=== PATIENT | female | born 1985 | race Caucasian/White ===

== ENCOUNTER 2018-03-16 12:02 | Outpatient (CLI) | payer OTHER, SELFPAY | END 2018-03-16 12:22 | PROVIDERS: PCP Nurse Practitioner; Visit Provider Nurse Practitioner | DX: R63.4 Abnormal weight loss (principal) | CPT/HCPCS: 36415; 84443 ==

== ENCOUNTER 2018-08-01 09:03 | Outpatient (CLI) | payer OTHER, SELFPAY ==
[2018-08-01 09:40] LABS: HCT 37.7 % (36.0-46.0); HGB 13.3 g/dL (12.0-15.5); Mean Corp. HGB Concentration 35.3 g/dL (32.0-36.0); Mean Corpuscular Hemoglobin 32.7 pg (27.0-33.0); Mean Corpuscular Volume 92.6 fL (80-95); Mean Platelet Volume 9.3 fL (8.0-11.0); Platelet Count 195 x1000/uL (130-400); RBC 4.07 m/cumm (4.00-5.20); RBC Distribution Width 11.8 % (11.7-14.6); White Blood Cell Count 4.83 k/cumm (4.4-10.8)
[2018-08-01 10:35] LABS: ALT 19 U/L (12-78); AST 14 U/L (15-37); Alkaline Phosphatase 46 U/L (46-116); Anion Gap 6.3 mmol/L (3-11); BUN 7 mg/dL (7-18); Bilirubin, Total 0.6 mg/dL (0.2-1.0); CO2 28.7 mmol/L (21.0-32.0); CREATININE 0.71 mg/dL (0.55-1.02); Calcium 8.8 mg/dL (8.5-10.1); Chloride 102 mmol/L (98-107); Glucose 89 mg/dL (70-100); Potassium 3.9 mmol/L (3.5-5.1); Sodium 137 mmol/L (136-145); TSH (W/Ref FT4) 0.65 uIU/mL (0.358-3.74); Total Protein 6.7 g/dL (6.4-8.2)
== END 2018-08-01 09:23 ==
PROVIDERS: PCP Nurse Practitioner; Visit Provider Nurse Practitioner
DX: G43.909 Migraine, unspecified, not intractable, without status migrainosus (principal); R00.0 Tachycardia, unspecified
CPT/HCPCS: 36415; 80053; 85027; 84443

== ENCOUNTER 2018-08-02 01:39 | Outpatient (CLI) | payer OTHER, SELFPAY ==
--- NOTE | 2018-08-07 07:33 | HOLTER_ITS ---
HOLTER MONITOR DATE OF DICTATION August 06, 2018 48-Hour Study Baseline rhythm sinus. Rare single PAC. 2 bursts SVT, longest 6 beat duration, fastest 147 beats per minute. Rare single PVC. No VT. No bradycardia. SYMPTOMS Shortness of breath noted once during sinus rhythm 94 beats per minute. Flutter/cough noted once during sinus rhythm 91 beats per minute, noted twice during sinus rhythm wit h single PVC 80, 97 beats per minute. Average heart rate 90 beats per minute, range 65-134 beats per minute. Jamie Huang M.D. FILOMENA/ryder T - 08/07/18
== END 2018-08-02 01:59 ==
PROVIDERS: PCP Nurse Practitioner; Visit Provider Nurse Practitioner
DX: R00.0 Tachycardia, unspecified (principal); I47.1 Supraventricular tachycardia; I49.1 Atrial premature depolarization; I49.3 Ventricular premature depolarization
CPT/HCPCS: 93225

== ENCOUNTER 2018-08-06 10:38 | Outpatient (CLI) | payer OTHER, SELFPAY | END 2018-08-06 10:58 | PROVIDERS: PCP Nurse Practitioner; Visit Provider Nurse Practitioner | DX: R00.0 Tachycardia, unspecified (principal); I47.1 Supraventricular tachycardia; I49.1 Atrial premature depolarization; I49.3 Ventricular premature depolarization | CPT/HCPCS: 93226 ==

== ENCOUNTER 2019-07-03 06:57 | Outpatient (CLI) | payer OTHER, SELFPAY ==
--- NOTE | 2019-07-03 07:00 | DI.US_ITS ---
EXAM: US ABDOMEN CLINICAL HISTORY: RUQ PAIN,R10.11 TECHNIQUE: Ultrasound performed using standard protocol. COMPARISON: No exams were available for comparison FINDINGS: The visualized liver parenchyma is normal in appearance. There is no evidence of cholelithiasis but there are multiple small gallbladder polyps largest measuring about 4 millimeters. Gallbladder wall is not thickened. No pericholecystic fluid collection. Pancreas appears intact as visualized. No biliary dilatation. Spleen is unremarkable. The kidneys are normal in size and shape with no evidence of a renal mass, hydronephrosis, or nephrol ithiasis. Abdominal aorta and IVC are of normal diameter. IMPRESSION: No evidence of acute intra-abdominal process. Incidental gallbladder wall polyps. DATA REPOSITORY:
--- NOTE | 2019-07-03 07:52 | DI.US_ITS ---
EXAM: US PELVIS CLINICAL HISTORY: RLQ PAIN, R10.31 TECHNIQUE: Ultrasound performed using standard protocol. COMPARISON: US ABDOMEN from 07/03/2019 FINDINGS: Pelvic ultrasound was performed transabdominally only. The examination is very technically limited. No gross uterine abnormality seen. Endometrial stripe grossly estimated at 6 millimeters but endome trium is not well visualized. No gross free fluid in the pelvis. Ovaries not visualized. IMPRESSION: Very limited study obtained transabdominally. Ovaries not visualized. No free fluid in the pelvis. DATA REPOSITORY:
== END 2019-07-03 07:17 ==
PROVIDERS: PCP Nurse Practitioner; Visit Provider Nurse Practitioner
DX: R10.11 Right upper quadrant pain (principal); K82.4 Cholesterolosis of gallbladder; R10.31 Right lower quadrant pain
CPT/HCPCS: 76700; 76856

== ENCOUNTER 2019-07-11 11:01 | Outpatient (REF) | payer OTHER, SELFPAY ==
[2019-07-15 11:59] LABS: Helicobacter pylori Ag, Feces Negative (Negative)
== END 2019-07-11 11:21 ==
LOC: LBN 11:01
PROVIDERS: PCP Nurse Practitioner; Visit Provider Nurse Practitioner
DX: R10.11 Right upper quadrant pain (principal); R10.31 Right lower quadrant pain
CPT/HCPCS: 87338

== ENCOUNTER 2019-07-18 02:15 | Outpatient (CLI) | payer OTHER, SELFPAY ==
[2019-07-18] MEDS: Normal Saline - Diluent 50 ML VIAL IV (08:57)
[2019-07-18] MEDS: Omnipaque 350 MG/ML 100 ML BTL IJ (08:58)
--- NOTE | 2019-07-18 08:59 | DI.CT_ITS ---
EXAM: CT CHEST/ABD W CLINICAL HISTORY: rib pain rt side, ruq pain, r10.11,r07.81 COMPARISON: No exams were available for comparison FINDINGS: CT examination of the chest and abdomen was performed utilizing biphasic imaging with intravenous inf usion of 100 cc of Omnipaque 350. The lungs are clear. No pleural effusion or pleural-based mass. No pneumothorax or hemothorax. There is no evidence of pulmonary embolic disease. Thoracic aorta an d major branches appear intact. No mediastinal or hilar adenopathy. No focal abnormality involving the rib or soft tissues of the chest wall. The liver, spleen, and pancreas appear normal. Gallbladder and bile ducts are CT normal. Adrenals a nd kidneys appear normal. No hernia of visualized portions of the abdominal wall. No abdominal wall hematoma or mass. Abdominal aorta and major branches appear normal. IMPRESSION: Negative CT examination of the chest and abdomen.
== END 2019-07-18 02:35 ==
PROVIDERS: PCP Nurse Practitioner; Visit Provider Nurse Practitioner
DX: R07.81 Pleurodynia (principal); R10.11 Right upper quadrant pain
CPT/HCPCS: 71260; 74160; J3490

== ENCOUNTER 2020-01-17 03:04 | Outpatient (CLI) | payer OTHER, SELFPAY ==
[2020-01-17 11:39] LABS: Abs Immature Grans 0.01 10^3/uL (0.0-0.06); Absolute Basophil Count 0.04 10^3/uL (0.0-0.2); Absolute Eosinophil Count 0.11 10^3/uL (0.0-0.7); Absolute Monocyte Count 0.42 10^3/uL (0.1-0.8); Absolute Neutrophil Count 3.44 10^3/uL (1.2-6.7); Basophils % 0.7; Eosinophils % 1.9; HGB 13.6 g/dL (11.2-15.7); Immature Grans % 0.2; Lymphocytes % 29.7; MCH 32.4 pg (27.0-33.0); MCHC 35.8 % (32.0-36.0); MCV 90.5 fL (80-95); MPV 9.2 fL (8.0-11.0); Monocytes % 7.3; Neutrophils % 60.2; Nucleated RBC 0 %; Platelet Count 200 10^3/uL (130-400); RDW 11.5 % (11.7-14.6); RDW-SD 37.6 fL; WBC 5.72 10^3/uL (4.4-10.8)
[2020-01-17 12:48] LABS: ALT 58 U/L (14-59); AST 25 U/L (15-37); Albumin 4.3 g/dL (3.4-5.0); Alkaline Phosphatase 56 U/L (46-116); Anion Gap 5.5 mmol/L (3-11); BUN 13 mg/dL (7-18); Bilirubin, Total 0.5 mg/dL (0.2-1.0); CO2 30.5 mmol/L (21.0-32.0); CREATININE 0.68 mg/dL (0.55-1.02); Calcium 9.5 mg/dL (8.5-10.1); Chloride 101 mmol/L (98-107); FREE T4 0.99 ng/dL (0.76-1.46); Glucose 77 mg/dL (74-106); Potassium 3.8 mmol/L (3.5-5.1); Sodium 137 mmol/L (136-145); Total Protein 7.5 g/dL (6.4-8.2)
[2020-01-17 18:13] LABS: FSH 5.3 mIU/mL (See Note); LH 5.6 mIU/mL (See Note); Prolactin 9.5 ng/mL (See Table)
[2020-01-21 18:54] LABS: 17-Hydroxyprogesterone 48 ng/dL
[2020-01-24 18:15] LABS: TSH, Sensitive 0.8 mIU/L (0.3-4.2)
== END 2020-01-17 03:24 ==
PROVIDERS: PCP Nurse Practitioner; Visit Provider Obstetrics & Gynecology
DX: N93.8 Other specified abnormal uterine and vaginal bleeding (principal)
CPT/HCPCS: 36415; 80053; 83001; 83002; 83498; 84146; 84439; 84443; 85025

== ENCOUNTER 2020-02-10 00:47 | Outpatient (CLI) | payer OTHER, SELFPAY ==
--- NOTE | 2020-02-10 06:45 | DI.US_ITS ---
EXAM: US PELVIS TRANSVAGINAL CLINICAL HISTORY: evaluate endometrium,DYSFUNCTIONAL UTERINE BLEEDING,N92.6,TRYING TO GET TECHNIQUE: Ultrasound performed using standard protocol. COMPARISON: US US PELVIS from 07/03/2019 FINDINGS: Pelvic ultrasound was performed transabdominally and transvaginally. Uterus is normal in appearance with an unremarkable myometrium, and a 7 millimeter thick homogeneous endometrial stripe. The ovaries have a normal follicular appearance. Right ovary measures 30 x 17 x 16 millimeters and l eft ovary measures 30 x 16 x 18 millimeters. Limited scanning of the kidneys is unremarkable. There is no free fluid identified in the cul-de-sac . IMPRESSION: Negative pelvic ultrasound, unremarkable appearance of endometrial stripe. DATA REPOSITORY:
== END 2020-02-10 01:07 ==
PROVIDERS: PCP Nurse Practitioner; Visit Provider Obstetrics & Gynecology
DX: N92.6 Irregular menstruation, unspecified (principal)
CPT/HCPCS: 76830; 76856

== ENCOUNTER 2020-10-01 09:36 | Outpatient (CLI) | payer OTHER, SELFPAY ==
[2020-10-01 16:27] LABS: HCG Quant, Pregnancy 994 mIU/mL (1-3)
[2020-10-02 17:36] LABS: Progesterone 20.3 ng/mL (See Table)
== END 2020-10-01 09:37 | disposition home or self-care (01) ==
LOC: LBO 09:43
PROVIDERS: PCP Nurse Practitioner; Visit Provider Obstetrics & Gynecology
DX: E28.2 Polycystic ovarian syndrome (principal); Z32.01 Encounter for pregnancy test, result positive
CPT/HCPCS: 36415; 84144; 84702

== ENCOUNTER 2020-11-11 03:35 | Outpatient (CLI) | payer OTHER, SELFPAY ==
[2020-11-11 14:57] LABS: Abs Immature Grans 0.01 10^3/uL (0.0-0.06); Absolute Basophil Count 0.05 10^3/uL (0.0-0.2); Absolute Eosinophil Count 0.08 10^3/uL (0.0-0.7); Absolute Lymphocyte Count 2.12 10^3/uL (1.2-3.4); Absolute Monocyte Count 0.55 10^3/uL (0.1-0.8); Absolute Neutrophil Count 6.19 10^3/uL (1.2-6.7); Basophils % 0.6; Eosinophils % 0.9; HCT 38.7 % (36.0-46.0); HGB 13.7 g/dL (11.2-15.7); Immature Grans % 0.1; Lymphocytes % 23.6; MCH 31.7 pg (27.0-33.0); MCHC 35.4 % (32.0-36.0); MCV 89.6 fL (80-95); MPV 9.1 fL (8.0-11.0); Monocytes % 6.1; Neutrophils % 68.7; Nucleated RBC 0 %; Platelet Count 212 10^3/uL (130-400); RBC 4.32 10^6/uL (3.93-5.22); RDW 11.4 % (11.7-14.6); RDW-SD 37.2 fL
[2020-11-11 16:04] LABS: TSH (W/Ref FT4) 0.88 uIU/mL (0.36-3.74)
[2020-11-12 10:51] LABS: Varicella IgG Antibody Positive (See Note)
[2020-11-12 10:53] LABS: Rubella IgG Ab (UVM) Positive (See Note)
[2020-11-12 11:45] LABS: Hepatitis B Surface Ag Negative (Negative)
[2020-11-12 12:28] LABS: HIV-1/2 Ag & Ab Screen Negative (Negative)
[2020-11-12 12:31] LABS: Hepatitis C Ab w Rflx HCV PCR Negative (Negative)
[2020-11-12 20:17] LABS: Syphilis Total Ab w/Reflex Nonreactive (Nonreactive)
== END 2020-11-11 03:36 | disposition home or self-care (01) ==
LOC: LBO 03:35
PROVIDERS: Advanced Practice Midwife; PCP Nurse Practitioner; Visit Provider Obstetrics & Gynecology
DX: Z34.91 Encounter for supervision of normal pregnancy, unspecified, first trimester (principal); Z11.4 Encounter for screening for human immunodeficiency virus [HIV]; Z11.59 Encounter for screening for other viral diseases; Z3A.10 10 weeks gestation of pregnancy; Z01.84 Encounter for antibody response examination
CPT/HCPCS: 36415; 86787; 86803; 86850; 86900; 86901; 87340; 87389; 84443; 85025; 86762; 86780

== ENCOUNTER 2020-11-11 15:03 | Outpatient (REF) | payer OTHER, SELFPAY ==
--- NOTE | 2020-11-11 13:30 | PAPFT_PTH ---
PATIENT: Nargis Sethi LOC: Ld U#:[id number] AGE/SX: 35/F ROOM: RE11/11/[address]: Princess Rucker CNM : 1985 BED: DIS: 11/11/2020 SPEC #: [id number] RECD: 11/11/20 18:19 STATUS: PILAR RERylee #: [id number] JIMMY: 11/11/20 13:[address]: Princess Rucker DEPT: [facility] Cytology RECD BY: Maria R Tom ENTERED: 11/11/20 18:19 SP TYPE: PAPFT MARIAH DR: Christine Kruse APRN Tissues: 1 - CX/ENDOCX FOR PAP SMEARS Procedures: PAP THIN PREP/UVM Screening HPV DNA PROBE Comments: [id number]
[2020-11-11 17:14] LABS: *AMPHETAMINES SCREEN URINE Negative (Negative); *BARBITURATES SCREEN URINE Negative (Negative); *BENZODIAZEPINES SCREEN URINE Negative (Negative); Cannabinoids THC Negative (Negative); Cocaine Screen,Urine Negative (Negative); METHADONE URINE SCREEN Negative (Negative); OPIATES URINE SCREEN Negative (Negative)
[2020-11-11 17:15] LABS: Tricyclic Antidepressants Negative (Negative)
[2020-11-12 14:55] LABS: Chlamydia Result Negative (Negative); GC Result Negative (Negative)
[2020-11-17 14:38] LABS: Buprenorphine Negative ng/mL (Cutoff: 5.0); Norbuprenorphine Negative ng/mL (Cutoff: 2.5)
== END 2020-11-11 15:04 | disposition home or self-care (01) ==
LOC: LBN 15:03
PROVIDERS: PCP Nurse Practitioner; Visit Provider Advanced Practice Midwife
DX: Z34.91 Encounter for supervision of normal pregnancy, unspecified, first trimester (principal); Z11.3 Encounter for screening for infections with a predominantly sexual mode of transmission; Z12.4 Encounter for screening for malignant neoplasm of cervix; Z11.51 Encounter for screening for human papillomavirus (HPV)
CPT/HCPCS: 80307; 87491; 87591; 88142; 87086; 87624

== ENCOUNTER 2021-03-10 02:19 | Outpatient (CLI) | payer OTHER, SELFPAY ==
[2021-03-10 13:44] LABS: HCT 30.2 % (36.0-46.0); HGB 10.6 g/dL (11.2-15.7); MCH 32.7 pg (27.0-33.0); MCHC 35.1 % (32.0-36.0); MCV 93.2 fL (80-95); MPV 8.6 fL (8.0-11.0); Platelet Count 172 10^3/uL (130-400); RBC 3.24 10^6/uL (3.93-5.22); RDW 11.9 % (11.7-14.6)
[2021-03-10 13:53] LABS: Glucose,1 Hr (Glucola) 128 mg/dL (80-140)
== END 2021-03-10 02:20 | disposition home or self-care (01) ==
LOC: LBO 02:19
PROVIDERS: PCP Nurse Practitioner; Visit Provider Advanced Practice Midwife
DX: Z34.92 Encounter for supervision of normal pregnancy, unspecified, second trimester (principal)
CPT/HCPCS: 36415; 82950; 85027; 86850; 90384

== ENCOUNTER 2021-05-12 17:55 | Outpatient (REF) | payer OTHER, SELFPAY ==
[2021-05-12 19:47] LABS: *AMPHETAMINES SCREEN URINE Negative (Negative); *BARBITURATES SCREEN URINE Negative (Negative); *BENZODIAZEPINES SCREEN URINE Negative (Negative); Cannabinoids THC Negative (Negative); Cocaine Screen,Urine Negative (Negative); METHADONE URINE SCREEN Negative (Negative); OPIATES URINE SCREEN Negative (Negative)
[2021-05-12 19:49] LABS: Tricyclic Antidepressants Negative (Negative)
[2021-05-18 14:38] LABS: Buprenorphine Negative ng/mL (Cutoff: 5.0); Norbuprenorphine Negative ng/mL (Cutoff: 2.5)
== END 2021-05-12 17:56 | disposition home or self-care (01) ==
LOC: LBN 17:55
PROVIDERS: PCP Nurse Practitioner; Visit Provider Advanced Practice Midwife
DX: Z34.93 Encounter for supervision of normal pregnancy, unspecified, third trimester (principal)
CPT/HCPCS: 80307; 87081

== ENCOUNTER 2021-06-10 16:00 | Inpatient (IN) | payer OTHER, SELFPAY ==
[2021-06-10] VITALS (11 sets, daily range): BP systolic 101–121; BP diastolic 58–73; PULSE 79–100; RESP 16–20; TEMP 36.7–36.8; O2SAT 99
[2021-06-10] MEDS: Penicillin G POT. 5,000,000 UNITS in Normal Saline 100 ML 200 UNITS IVPB (15:25)
[2021-06-10 15:35] LABS: Source Nasal/Nares
--- NOTE | 2021-06-10 15:36 | W.PM.OBHPL1 ---
Date of service: 06/10/21 Time of Service: 15:36 Assessment and Plan Assessment and plan (1) Active labor at term: Status: Acute Assessment and plan: 1. admit, labs, COVID screen and IV placement 2. expect NVD (2) Group B Streptococcus carrier, +RV culture, currently : Status: Acute Assessment and plan: 1. PCN prophylaxis for GBS + initiated. OB-HPI Labor/Delivery History of Present Illness Reason for Visit: In labor Chief Complaint: Uterine Contractions. JOSE ALFREDO Calculator Estimated Delivery Date Method Current WG Current Estimate 06/07/21 Ultrasound #1 40w 3d Other Estimates 04/27/21 LMP (Uncertain) 46w 2d Comments: labor at term History of Present Expected Delivery Route/Plan - CNM goes by Lauryn TRUONG/ - Quentin Sethi (first child BG GBS POSITIVE Quentin will be support person in labor and possibly her mother. Specific Issues/Plan 1. Hx PCOS & infertility x1 yr, this is a spontaneous 2. AMA; will be 36 at delivery, advised to take low dose ASA @ 12 wks - not taking it. She states was not aware, declines to start. 3. Both pt & FOB are COVID vaccinated 4. Undecided about genetic testing, will discuss w/ and let us know- declined serum testing. 5. Vegetarian; advised to take Blood Builder tab daily with her PNV Alive brand 5. Started eating fish - not taking blood builder. Taking gummie vitamins - Ferrous sulfate or floridix recommended 6. Rh negative, Rhogam at 28: given 03/10/21 6a. Quentin having blood type checked- He is O pos. 7. Nosebleeds and environmental allergies. Daily antihistamine recommended-flonase which was ineffective. . 7a. Using a humidifier at work and that is helping. 8. chronic right upper and lower abdominal pain. Narrative: up to date Review of Systems Narrative: reports active contractions, intense for past 30 minutes following SROM at 1330 today clear fluid. all other systems negative. PFSH All Active Problems (Updated 06/10/21 @ 15:43 by Nargis Henry CNM) Active labor at term (Acute) Group B Streptococcus carrier, +RV culture, currently (Acute) Chronic abdominal pain (Acute) upper and lower right quadrant - neg US and CT scans 2019 Rh negative status during (Acute) 10 weeks gestation of (Acute) PCOS (polycystic ovarian syndrome) (Acute) Tinea (Acute) Gallbladder polyp (Acute) Vegetarian (Acute) Migraine (Chronic) Medical History Chronic abdominal pain upper and lower right quadrant - neg US and CT scans 2019 DUB (dysfunctional uterine bleeding) Encounter for fertility planning Gallbladder polyp Menstrual period late Migraine PCOS (polycystic ovarian syndrome) Positive test Rib pain on right side RLQ abdominal pain RUQ pain Trying to get Vegetarian Surgical History [place] teeth extracted Family History Mother Skin cancer Asthma Father Melanoma Brother No problems noted. Paternal Aunt Brain aneurysm Maternal Uncle , Suicide No problems noted. Paternal Grandmother Lymphoma Stage 4 chronic kidney disease Paternal Grandfather Brain aneurysm ? 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 Pets and animals: Yes (3) Pets and animals: cat(s) Sexually active: Yes Do you think of yourself as: straight/heterosexual Current gender identity: female What is your relationship status?: How often do you talk on the phone with friends or family?: three or more times per week Do you belong to any clubs or organized social groups?: yes Panel score (0-1 are the most socially isolated patients): 3 What type of physical activity do you participate in: aerobic, other and running Duration: 15-30 minutes/day Frequency: 5-6 times per week Genie/Jainism: None Special genie needs: No Seatbelt use: always Helmet use: Yes Helmet use: always Drive intox or ride w/intox fuel oil truck driver: No History History 1 Para 0 Hx # Term Pregnancies 0 Multiple births 0 Hx # Pregnancies 0 Ectopic pregnancies 0 AB induced 0 Hx Number of Living Children 0 AB spontaneous 0 Meds Allergies and Home Medications Allergies Allergy/AdvReac Type Severity Reaction Status Date / Time No Known Allergies Allergy Verified 06/10/21 15:41 Home Medications Medication Instructions Recorded Confirmed Type prenat.vits,theresa,[id number] 1 tab PO DAILY 05/11/20 05/26/21 History fluticasone propionate 50 2 spray INTRANASAL DAILY #16 g 02/19/21 05/26/21 Rx mcg/actuation nasal spray,suspension sodium chloride 0.65 % nasal drops 2 drp INTRANASAL Q2H PRN #50 ml 02/19/21 05/26/21 Rx ([place] Saline) Exam Physical Exam Vital Signs Reviewed: Yes Detailed Labor and Delivery Exam Dilation: 9 Effacement (%): 100 station: -1 Cervix position: anterior Consistency: soft Tejeda Score: Cervical Points Exam 0 1 2 3 Dilation Closed 1-2cm 3-4 cm 5-6cm Effacement 0-30% 40-50% 60-70% 80% Consistency Firm Medium Soft Station -3 -2 -1,0 +1,+2 Position Posterior Mid Anterior TEJEDA Score(Cervical Ripeness Score): 12 Rupture Method: Spontaneous Amniotic Fluid: Clear Comments: Lauryn presents with her Mother and her for complaint of ROM 1330 and active contractions which began within 1 hour of ROM. 9 cm on arrival. Will anticipate NVD. KH Fetus A Heart Rate Baseline: 140 Monitor Accelerations: 15 X 15 Monitor Decelerations: None Variability: Moderate (6-25 BPM) Presentation: Cephalic Categories: Category I Est. Weight: 7 lb Date of Membrane Rupture: 06/10/21 Time of Membrane Rupture: 13:30 HEENT Exam HEENT Exam: Normal Neck Exam Neck Exam: Not Done Chest/Brest/Axilla Exam Chest Exam: Not Done Breast Exam Breast Exam: Not Done Respiratory Exam Respiratory Exam: Normal Cardiovascular Exam Cardiovascular Exam: Normal Exam Exam: Normal (grossly leaking clear fluid) Extremities Exam Extremities Exam: Normal Back/Spine/Pelvis Exam Pelvis Adequate: Yes Neurological Exam Neurological Exam: Normal Psychiatric Exam Psychiatric Exam: Normal Results Results Group Beta Strep: Positive Blood Type: O- Rubella Status: Immune Varicella Immunity: Immune Risk Assessment Risk for Shoulder Dystocia Historical/Initial OB: NEGATIVE FOR: Pelvic Abnormality, Pre- BMI>30, Previous Shoulder Dystocia or Previous Macrosomia Delivery Plan @ 40 wks: expect NVD. KH Risk for Pre-Eclampsia Date Initiated/Initials: to start low dose ASA @ 12 wks jk Yes, if one or more: NEGATIVE FOR: Hx Pre-E/Gest HTN, Chronic HTN, Multiple Gestation, Pre-gestational DM, Renal Disease, Systemic Lupus or APA Syndrome Yes, if 2 or more: POSITIVE FOR: Nulliparity and Age>= 35 yrs (age 35 at delivery); NEGATIVE FOR: >10yr btwn pregnancies, BMI>30, ethinicty, Mother/Sister w/ Pre-E or Previous IUGR Risk for Post- Hemorrhage Initial: NEGATIVE FOR: Multiple Gestation, Previous PPH, Known Clotting Deficiency, Grand Multiparity or Anticoagulation Risks Reviewed Risks Reviewed Upon Admission: Yes
[2021-06-10] MEDS: Ondansetron 4 MG/2 ML VIAL IVP (15:40)
[2021-06-10] MEDS: Lactated Ringers 1,000 ML 125 ML IV (15:54)
[2021-06-10 16:07] LABS: HCT 33.9 % (36.0-46.0); HGB 11.7 g/dL (11.2-15.7); MCH 30.1 pg (27.0-33.0); MCHC 34.5 % (32.0-36.0); MCV 87.1 fL (80-95); MPV 9.4 fL (8.0-11.0); Platelet Count 182 10^3/uL (130-400); RBC 3.89 10^6/uL (3.93-5.22); RDW 13.3 % (11.7-14.6); RDW-SD 42.1 fL; WBC 9.94 10^3/uL (4.4-10.8)
[2021-06-10 16:17] LABS: COVID-19 PCR Negative (Negative)
--- NOTE | 2021-06-10 18:29 | W.OBDELIVERY ---
Date of service: 06/10/21 Time of Service: 18:30 OB Labor/ Delivery Information Baby A Delivery Delivery Method: Spontaneaous Presentation: Cephalic Cephalic Position: Vertex Vertex Position: Left Occipital Anterior Cord Description-Baby A: 3 Vessels Cord Description Comment: normal appearance. Amniotic Fluid: Clear Estimated Blood Loss: 400 Delivery Outcome: Liveborn Complications: none Infant Transferred: Remains with Mother Note: After 30 minute active pushing phase, baby girl delivers TAMMI with left arm delivering with head at 1755. Shoulders deliver easily with maternal pushing effort. Baby is brought to Mother's abdomen. 9 at one minute and 9 at five minutes. Positive family bonding noted. Placenta delivers via thakkar mechanism, intact at 1804. Fundus firms to U-1 with massage and IV fluid with pitocin infusing which began after of baby. Perienum inspected and noted to have 2nd degree laceration which was infiltrated with 10 cc of 1% lidocaine and then repaired with 3.0 vicryl in usual fashion. sponge, needle and instrument count are correct. Mother and baby are in satisfactory condition. Baby girl does not have a name yet. Weight is pending due to skin to skin. See completed delivery record for weight. Expect normal PP course. Providers Nurse Doctor Of Nursing Practice: Nargis Henry Nurse: Dina Castro Nurse: Torsten Rivera Labor/Delivery Information Number of Babies in Womb: 1 Steroids Given: None Reason Steroids Not Administered: N/A Group Beta Strep: Positive Antibiotics Administered: Yes Number of Doses of Antibiotics: 1 Rubella Status: Immune Blood Type: O- Varicella Immunity: Immune Maternal Complications: None Shoulder Dystocia: No Stages of Labor Onset of Labor Date: 06/10/21 Onset of Labor Time: 13:30 Complete Dilatation Date: 06/10/21 Complete Dilatation Time: 17:30 Labor - Stage 1 Duration: 0 minutes ROM Baby A: 06/10/21 ROM Baby A: 13:30 ROM Total Time- Baby A: [id number] Infant Delivery Date-Baby A: 06/10/21 Delivery Time-Baby A: 17:55 Labor Stage 2 Duration: 25 minutes Placenta Delivery Date-Baby A: 06/10/21 Placenta Delivery Time-Baby A: 18:04 Labor-Stage 3 Duration: 9 minutes Total Length of Labor-Baby A: 4 hours and 25 minutes Placenta Cultured: No Baby A Infant Gender: Female Gestational Status: Term (39-41.6 wks) Gestational Age in Weeks/Days: 40 Weeks and 3 Days Score-1 Minute Interval(Baby A) Heart Rate-1 minute: 100 BPM or Greater Respiratory Effort- 1 minute: Spontaneous/Strong Cry Muscle Tone-1 minute: Active Movement Reflex Response-1 minute: Prompt Response Color-1 minute: Bluish Hands or Feet Total Score-1 minute: 9 Score-5 Minute Interval(Baby A) Heart Rate- 5 minute: 100 BPM or Greater Respiratory Effort-5 minute: Spontaneous/Strong Cry Muscle Tone-5 minute: Active Movement Reflex Response-5 minute: Prompt Response Color-5 minute: Bluish Hands or Feet Total Score- 5 minute: 9
[2021-06-10] MEDS: Hamamelis Leaf/Glycerin 100 EACH BOX PR (19:43)
[2021-06-10] MEDS: Dibucaine 1% 28 GM TUBE TP (19:43)
[2021-06-11 00:05] VITALS: BP 129/91; PULSE 76; RESP 16; TEMP 36.7; O2SAT 98
[2021-06-11 04:03] VITALS: BP 103/67; PULSE 70
[2021-06-11 07:40] VITALS: BP 116/75; PULSE 76; RESP 16; TEMP 37; O2SAT 98
--- NOTE | 2021-06-11 08:31 | OBPPV_ITS ---
Date of service: 06/11/21 Time of Service: 08:31 Assessment and Plan Assessment and plan (1) Term delivered: Status: Acute Assessment and plan: A: PPD#1, s/p Nml recovery Satisfied with experience off to a good start Partial GBS prophylaxis prior to delivery P: Provide support RhoGam not indicated, baby=O neg Pt plans POP's Plan discharge after 48 hrs Schedule 2 & 6 wk f/up appt's Subjective Subjective Patient comments: No complaints, Pain well controlled, Tolerating diet and Flatus present Patient's Mood: happy baby status: Doing well, Nursing well, Rooming in and Strong Bonding Observed [place] feeding status: Exclusively breast feeding Exam Physical Exam Vital signs: Temp Pulse Resp BP Pulse Ox 98.1 F 70 16 103/67 98 06/11/21 00:05 06/11/21 04:03 06/11/21 00:05 06/11/21 04:03 06/11/21 00:05 Vital Signs Reviewed: Yes Constitutional Constitutional: no acute distress and average body habitus HEENT Exam HEENT Exam: Normal Neck Exam Neck Exam: Normal Breast Exam Bilateral: Breast Exam: Normal and Soft Nipple Exam: Normal and Uninjured Respiratory Exam Respiratory Exam: Normal Cardiovascular Exam Cardiovascular Exam: Normal Abdominal Exam Abdomen: Other (soft, nontender) Fundal Exam Fundus: Below Umbilicus and Firm Rectal Exam Rectal Exam: Not Done Exam Perineum: Repair Intact Extremities Exam Extremity Exam: Normal, Full ROM, Normal Capillary Refill and Warm to Touch Back/Spine/Pelvis Exam Back Exam: Normal Skin Exam Skin Exam: Normal Neurological Exam Neurological Exam: Normal Psychiatric Exam Psychiatric Exam: Normal Results Hemoglobin/Hematocrit: Hgb 11.7 g/dL (11.2-15.7) 06/10/21 15:26 Hct 33.9 % (36.0-46.0) L 06/10/21 15:26
[2021-06-11] MEDS: Docusate Sodium 100 MG CAP PO ×2 (12:48→19:26)
[2021-06-11 12:58] VITALS: BP 117/74; PULSE 76; RESP 20; TEMP 36.7; O2SAT 98
[2021-06-11 16:35] VITALS: BP 124/71; PULSE 86; RESP 16; TEMP 36.7; O2SAT 98
[2021-06-11 19:59] VITALS: BP 112/73; PULSE 81; RESP 16; TEMP 37.3
[2021-06-12] MEDS: Acetaminophen 325 MG TAB 650 MG PO (08:30)
[2021-06-12] MEDS: Docusate Sodium 100 MG CAP PO (08:31)
[2021-06-12] MEDS: Ibuprofen 600 MG TAB PO (08:31)
--- NOTE | 2021-06-12 08:55 | W.PM.OBPNV1 ---
Date of service: 06/12/21 Time of Service: 08:55 Assessment and Plan Assessment and plan (1) Term delivered: Status: Acute Assessment and plan: A: PPD#2, nml recovery well Pt expresses satisfaction with her maternity care Good supports in place at home P: Discharge when baby is released by Peds Pt plans POP's Keep 2 & 6 wk f/up appt's Written instructions reviewed and given to pt Subjective Subjective Patient comments: No complaints, Pain well controlled, Tolerating diet and Flatus present Patient's Mood: happy baby status: Doing well, Nursing well, Rooming in and Strong Bonding Observed [place] feeding status: Exclusively breast feeding Exam Physical Exam Vital signs: Temp Pulse Resp BP Pulse Ox 99.1 F 81 16 112/73 98 06/11/21 19:59 06/11/21 19:59 06/11/21 19:59 06/11/21 19:59 06/11/21 16:35 Vital Signs Reviewed: Yes Constitutional Constitutional: no acute distress and average body habitus HEENT Exam HEENT Exam: Normal Neck Exam Neck Exam: Normal Breast Exam Bilateral: Breast Exam: Normal and Soft Respiratory Exam Respiratory Exam: Normal Cardiovascular Exam Cardiovascular Exam: Normal Abdominal Exam Abdomen: Other (soft, nontender) Fundal Exam Fundus: Below Umbilicus and Firm Rectal Exam Rectal Exam: Not Done Exam Perineum: Repair Intact Extremities Exam Extremity Exam: Normal, Full ROM, Normal Capillary Refill and Warm to Touch Back/Spine/Pelvis Exam Back Exam: Normal Skin Exam Skin Exam: Normal Neurological Exam Neurological Exam: Normal Psychiatric Exam Psychiatric Exam: Normal Hemorrrhage Note IV Site Left Hand: IV Catheter Gauge: 20
--- NOTE | 2021-06-12 09:01 | DSE_ITS ---
Date of service: 06/12/21 Time of Service: 09:01 DS: Diagnosis Discharge Diagnosis (1) Term delivered: Status: Acute Discharge Plan Disposition Patient Disposition: HOME Condition: Good Discharge Details Reason For Visit: In labor Admit Date/Time: 06/11/21 09:26 Admit Provider: Nargis Henry Attending Provider: Nargis Henry Primary Care Provider: [facility] Hospital Course: , nml course, discharge on PPD#2, well Home Meds and New Rx's Prescriptions: No Action fluticasone propionate 50 mcg/actuation spray,suspension 2 spray intranasal DAILY Qty: 16 1RF Rx Instructions: administer into each nostril, trial x 3 days [place] [employer] Saline 0.65 % drops 2 drp intranasal Q2H PRN (Reason: dry nasal passages) Qty: 50 1RF Rx Instructions: Use daily, alexa with nasal steroid or dryness prenat.vits,theresa,[id number] Tablet 1 tab PO DAILY 0RF Discharge Instructions Additional Instructions: Please keep 2 & 6 wk appt's with your cake cutter machine, resume taking vitamins after the first bowel movement, call for any questions or concerns. Stand Alone Forms: BC Instructions, BC Post Vaginal Deliver Activity:: Activity as Tolerated Equipment/Supplies:: No Equipment Needed Diet:: Normal Diet Discharge Orders Discharge Orders: Discharge Order (Routine); Ordered 06/12/21 Ordered By: Princess Rucker OB:DS Summary Summary Vaginal Delivery Method: Spontaneaous Episiotomy Description: Midline Laceration Description: Perineal Laceration Extension: Second Degree Contraception Discussed Contraception Discussed: Yes Contraceptive Plan: Control Pill/Patch, [place] Infant Gender-Baby A: Female weight: 8 lb 8.157 oz Status at Discharge Functional status at discharge: independent ambulation Overall status at discharge: patient is progressing back to baseline Mental Status: mental status grossly normal Speech and Movement: speech and movement normal and speech clear Mood: congruent mood Affect: normal affect Exam Physical Exam Vital signs: Temp Pulse Resp BP Pulse Ox 99.1 F 81 16 112/73 98 06/11/21 19:59 06/11/21 19:59 06/11/21 19:59 06/11/21 19:59 06/11/21 16:35 Constitutional Constitutional: no acute distress and average body habitus HEENT Exam HEENT Exam: Normal Neck Exam Neck Exam: Normal Breast Exam Bilateral: Breast Exam: Normal and Soft Respiratory Exam Respiratory Exam: Normal Cardiovascular Exam Cardiovascular Exam: Normal Abdominal Exam Abdomen: Other (soft, nontender) Fundal Exam Fundus: Below Umbilicus and Firm Rectal Exam Rectal Exam: Not Done Exam Perineum: Repair Intact Extremities Exam Extremity Exam: Normal, Full ROM, Normal Capillary Refill and Warm to Touch Back/Spine/Pelvis Exam Back Exam: Normal Skin Exam Skin Exam: Normal Neurological Exam Neurological Exam: Normal Psychiatric Exam Psychiatric Exam: Normal PFSH All Active Problems (Updated 06/11/21 @ 08:34 by Princess Rucker) Term delivered (Acute) PCOS (polycystic ovarian syndrome) (Acute) Tinea (Acute) Gallbladder polyp (Acute) Vegetarian (Acute) Migraine (Chronic) Medical History (Updated 06/11/21 @ 08:34 by Princess Rucker) Active labor at term Chronic abdominal pain upper and lower right quadrant - neg US and CT scans 2020 DUB (dysfunctional uterine bleeding) Encounter for fertility planning Group B Streptococcus carrier, +RV culture, currently Menstrual period late Positive test Rh negative status during Rib pain on right side RLQ abdominal pain RUQ pain Trying to get Surgical History [place] teeth extracted Family History Mother Skin cancer Asthma Father Melanoma Brother No problems noted. Paternal Aunt Brain aneurysm Maternal Uncle , Suicide No problems noted. Paternal Grandmother Lymphoma Stage 4 chronic kidney disease Paternal Grandfather Brain aneurysm ? 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, [employer] Pets and animals: Yes (3) Pets and animals: cat(s) Sexually active: Yes Do you think of yourself as: straight/heterosexual Current gender identity: female What is your relationship status?: How often do you talk on the phone with friends or family?: three or more times per week Do you belong to any clubs or organized social groups?: yes Panel score (0-1 are the most socially isolated patients): 3 What type of physical activity do you participate in: aerobic, other and running Duration: 15-30 minutes/day Frequency: 5-6 times per week Genie/Samaritan: None Special genie needs: No Seatbelt use: always Helmet use: Yes Helmet use: always Drive intox or ride w/intox route salesman and driver: No Do you feel safe at home: Yes Do you feel safe in your relationship?: Yes History History 1 Para 0 Hx # Term Pregnancies 0 Multiple births 0 Hx # Pregnancies 0 Ectopic pregnancies 0 AB induced 0 Hx Number of Living Children 0 AB spontaneous 0 DS: Data Vitals/I&O Vitals and I&O: Vital Signs Temperature 99.1 F 06/11/21 19:59 Pulse 81 06/11/21 19:59 Pulse Rhythm Regular 06/11/21 19:30 Respiratory Rate 16 06/11/21 19:59 Respiratory Depth Normal 06/11/21 19:30 Blood Pressure 112/73 06/11/21 19:59 Blood Pressure Mean 86 06/11/21 19:59 Pulse Oximetry 98 06/11/21 16:35 Oxygen Delivery Method Room Air 06/10/21 15:41 Oxygen Flow Rate 0 06/10/21 15:41 Pain Level 10 06/10/21 15:41 Comment 06/11/21 16:35 Intake & Output 06/11/21 06/11/21 06/12/21 11:59 23:59 11:59 Output Total 300 / 300 Balance -300 / -300 Output: Urine 300 / 300 Other: Urine Color Light Megan Urine Appearance Clear Urine Odor None Voiding Methods Toilet
[2021-06-12 09:02] VITALS: BP 110/77; PULSE 91; RESP 18; TEMP 36.4; O2SAT 98
[2021-06-12] MEDS: Hamamelis Leaf/Glycerin 100 EACH BOX PR (14:22)
== END 2021-06-12 15:20 | disposition home or self-care (01) | DRG 806 ==
PROVIDERS: Admitting Provider Advanced Practice Midwife; PCP Nurse Practitioner; Visit Provider Advanced Practice Midwife
DX: O99.824 Streptococcus B carrier state complicating childbirth (principal); O36.0930 Maternal care for other rhesus isoimmunization, third trimester, not applicable or unspecified; Z37.0 Single live birth; Z3A.40 40 weeks gestation of pregnancy; O70.1 Second degree perineal laceration during delivery
CPT/HCPCS: 85027; 86850; 86900; 86901; 87635; J2405; J2540; J3490